=== PATIENT | female | born 1980 | race Caucasian/White ===

== ENCOUNTER 2020-10-09 05:05 | Inpatient (IN) | payer MEDICAID ==
[~2020-10-09] VITALS: Ht 180.3 cm; Wt 187.0 kg
[2020-10-09] MEDS ORDERED: NEWBORN KIT ONE (05:22)
[2020-10-09] MEDS ORDERED: OXYTOCIN 30U/ 0.9% NaCL 500ML 500 ML ONE (05:23)
[2020-10-09] MEDS ORDERED: SODIUM CITRATE/CITRIC ACID 15 ML UDC ONE (05:23)
[2020-10-09] MEDS ORDERED: METOCLOPRAMIDE 5 MG/ML, 2ML ONE (05:23)
[2020-10-09] MEDS ORDERED: LEVO200T5 PO (05:25)
[2020-10-09] MEDS ORDERED: LIOT25TA12 PO (05:26)
[2020-10-09] MEDS ORDERED: PREN1TAB62 PO (05:26)
[2020-10-09 05:27] VITALS: BP 118/74
[2020-10-09] MEDS ORDERED: FLUT12HF2 INH (05:27)
[2020-10-09] MEDS ORDERED: LACTATED RINGERS 1,000 ML IVBOLUS ONE (05:30)
[2020-10-09] MEDS ORDERED: SODIUM CITRATE/CITRIC ACID 30 ML UDC PO ONE (05:30)
[2020-10-09] MEDS ORDERED: LACTATED RINGERS 1,000 ML IV SCH (05:30)
[2020-10-09] MEDS ORDERED: METOCLOPRAMIDE 5 MG/ML, 2ML IV ONE (05:30)
[2020-10-09 05:56] LABS: BASOPHILS % (AUTO) 1 % (0-1); EOSINOPHILS % (AUTO) 6 % (1-7); LYMPHOCYTES % (AUTO) 18 % (22-44); MD NO; MEAN CORPUSCULAR HEMOGLOBIN 30.6 pg (27.0-34.8); MEAN CORPUSCULAR HGB CONC 34.1 g/dL (32.4-35.8); MEAN PLATELET VOLUME 7.3 fL (7.4-10.4); MONOCYTES % (AUTO) 4 % (2-9); NEUTROPHILS % (AUTO) 71 % (42-75); PLATELET COUNT 211 x10^3/uL (130-400); RED BLOOD COUNT 4.22 x10^6/uL (3.82-5.3); RED CELL DISTRIBUTION WIDTH 14.3 % (9.6-15.2)
[2020-10-09] MEDS ORDERED: LABETALOL 5MG/ML, 20ML IV PRN (06:30)
[2020-10-09] MEDS ORDERED: FENTANYL PF 100 MCG/2ML IV PRN (06:30)
[2020-10-09] MEDS ORDERED: hydrALAzine 20 MG/ML, 1ML IV PRN (06:30)
[2020-10-09] MEDS ORDERED: OXYcodone 5 MG/5 ML ORAL.SOL UDC PO PRN (06:30)
[2020-10-09] MEDS ORDERED: EPHEDRINE 50 MG/ML, 1ML IVPush PRN (06:30)
[2020-10-09] MEDS ORDERED: METOPROLOL 1 MG/ML, 5ML IV PRN (06:30)
[2020-10-09] MEDS ORDERED: HYDROmorphone 2 MG/ML, 1ML IVPush PRN (06:30)
[2020-10-09] MEDS ORDERED: PROMETHAZINE 25 MG/ML, 1ML IV PRN (06:30)
[2020-10-09] MEDS ORDERED: ONDANSETRON 2MG/ML, 2ML IVPush PRN (06:30)
[2020-10-09] MEDS ORDERED: HYDROcodone/APAP 7.5-325MG/15ML UDC PO PRN (06:30)
[2020-10-09] MEDS ORDERED: ALBUTEROL SULFATE 2.5 MG/3 ML NPPB PRN (06:30)
[2020-10-09] MEDS ORDERED: MIDAZOLAM 1 MG/ML, 2ML IV PRN (06:30)
[2020-10-09] MEDS ORDERED: MEPERIDINE/PF 25MG/0.5ML IVPush PRN (06:30)
[2020-10-09] MEDS ORDERED: morphine SULFATE/PF 0.5 MG/ML, 10ML ONE (06:45)
[2020-10-09] MEDS ORDERED: EPINEPHRINE 1 MG/ML, 1ML ONE (06:45)
[2020-10-09 07:06] LABS: AMPHETAMINE SCREEN, URINE Negative (Negative); BARBITURATE SCREEN, URINE Negative (Negative); BENZODIAZEPINE SCREEN, URINE Negative (Negative); CANNABINOID SCREEN, URINE Negative (Negative); COCAINE SCREEN, URINE Negative (Negative); METHADONE SCREEN, URINE Negative (Negative); OPIATE SCREEN, URINE Negative (Negative)
[2020-10-09] MEDS ORDERED: CALCIUM CHLORIDE 10%, 10ML SYR ONE (09:07)
[2020-10-09] MEDS ORDERED: PHENYLEPHRINE 10 MG/ML ONE (09:07)
[2020-10-09] MEDS ORDERED: CEFAZOLIN 1,000 MG ONE (09:07)
[2020-10-09] MEDS ORDERED: ONDANSETRON 2MG/ML, 2ML ONE ×2 (09:07)
[2020-10-09] MEDS ORDERED: OXYTOCIN 10 UNITS/ML, 1ML ONE (09:07)
[2020-10-09] MEDS ORDERED: WATER-INJECTION,STERILE 10 ML IV ONE (09:07)
[2020-10-09] MEDS ORDERED: EPHEDRINE 50 MG/ML, 1ML ONE (09:07)
[2020-10-09] MEDS: LACTATED RINGERS 1,000 ML IV SCH ×4 (09:30→19:30)
[2020-10-09] MEDS ORDERED: KETOROLAC 30 MG/1 ML ONE (09:48)
[2020-10-09] MEDS: KETOROLAC 30 MG/1 ML IV SCH ×3 (09:50→21:37)
[2020-10-09] MEDS: OXYTOCIN 30U/ 0.9% NaCL 500ML 500 ML IV SCH ×2 (11:25→19:30)
[2020-10-09 11:45] VITALS: BP 115/56
[2020-10-09] MEDS: LEVOTHYROXINE HOMEMEDPO SCH (14:00)
[2020-10-09] MEDS: LIOTHYRONINE HOMEMEDPO SCH (14:00)
[2020-10-09 15:38] VITALS: BP 129/88
[2020-10-09 17:34] LABS: BASOPHILS % (AUTO) 1 % (0-1); EOSINOPHILS % (AUTO) 2 % (1-7); LYMPHOCYTES % (AUTO) 11 % (22-44); MEAN CORPUSCULAR HEMOGLOBIN 30.2 pg (27.0-34.8); MEAN CORPUSCULAR HGB CONC 33.5 g/dL (32.4-35.8); MEAN PLATELET VOLUME 7.1 fL (7.4-10.4); MONOCYTES % (AUTO) 4 % (2-9); NEUTROPHILS % (AUTO) 81 % (42-75); PLATELET COUNT 186 x10^3/uL (130-400); RED BLOOD COUNT 3.84 x10^6/uL (3.82-5.3); RED CELL DISTRIBUTION WIDTH 14.5 % (9.6-15.2)
[2020-10-09 17:37] LABS: MD NO
[2020-10-09 20:10] VITALS: BP 106/72
[2020-10-09] MEDS: DOCUSATE 100 MG CAPSULE PO PRN (21:37)
[2020-10-09] MEDS: FLUTICASONE PROPIONATE INH SCH (21:42)
[2020-10-10 00:10] VITALS: BP 120/76
[2020-10-10] MEDS: LACTATED RINGERS 1,000 ML IV SCH ×5 (01:30→17:30)
[2020-10-10] MEDS: KETOROLAC 30 MG/1 ML IV SCH ×4 (03:27→21:59)
[2020-10-10 03:30] VITALS: BP 120/81
[2020-10-10] MEDS: OXYTOCIN 30U/ 0.9% NaCL 500ML 500 ML IV SCH ×2 (05:30→15:30)
[2020-10-10] MEDS: PRENATAL VIT/IRON/FA 1 EACH TABLET PO SCH (08:47)
[2020-10-10] MEDS: SIMETHICONE 80 MG CHEW TAB PO PRN ×2 (08:48→17:38)
[2020-10-10] MEDS: DOCUSATE 100 MG CAPSULE PO PRN (08:48)
[2020-10-10] MEDS: LEVOTHYROXINE HOMEMEDPO SCH (09:00)
[2020-10-10] MEDS: FLUTICASONE PROPIONATE INH SCH ×2 (09:00→21:00)
[2020-10-10] MEDS: LIOTHYRONINE HOMEMEDPO SCH (09:00)
[2020-10-10] MEDS: OXYcodone/APAP 5/325MG TABLET PO PRN (17:39)
[2020-10-10 19:29] VITALS: BP 131/84
[2020-10-11 02:15] VITALS: BP 138/65
[2020-10-11] MEDS: IBUPROFEN 600 MG TABLET PO PRN ×3 (03:36→19:01)
[2020-10-11 07:00] VITALS: BP 126/70
[2020-10-11] MEDS: PRENATAL VIT/IRON/FA 1 EACH TABLET PO SCH (07:39)
[2020-10-11] MEDS: DOCUSATE 100 MG CAPSULE PO PRN (07:39)
[2020-10-11] MEDS: OXYcodone/APAP 5/325MG TABLET PO PRN ×2 (07:40→12:48)
[2020-10-11] MEDS: LIOTHYRONINE HOMEMEDPO SCH (09:00)
[2020-10-11] MEDS: LEVOTHYROXINE HOMEMEDPO SCH (09:00)
[2020-10-11] MEDS: FLUTICASONE PROPIONATE INH SCH ×2 (09:00→21:00)
[2020-10-11] MEDS ORDERED: IBUPROFEN 600 MG TABLET PO PRN (09:30)
[2020-10-11 13:19] VITALS: BP 129/78
[2020-10-11 16:25] VITALS: BP 138/88
[2020-10-11 19:43] VITALS: BP 140/81
[2020-10-11 23:30] VITALS: BP 112/74
[2020-10-12] MEDS: DOCUSATE 100 MG CAPSULE PO PRN ×2 (01:14→07:30)
[2020-10-12] MEDS: IBUPROFEN 600 MG TABLET PO PRN ×4 (01:14→19:32)
[2020-10-12] MEDS: OXYcodone/APAP 5/325MG TABLET PO PRN ×2 (01:14→19:32)
[2020-10-12 07:00] VITALS: BP 124/74
[2020-10-12] MEDS: PRENATAL VIT/IRON/FA 1 EACH TABLET PO SCH (07:30)
[2020-10-12] MEDS: LIOTHYRONINE HOMEMEDPO SCH (09:00)
[2020-10-12] MEDS: FLUTICASONE PROPIONATE INH SCH ×2 (09:00→21:00)
[2020-10-12] MEDS: LEVOTHYROXINE HOMEMEDPO SCH (09:00)
[2020-10-12] MEDS ORDERED: FUROSEMIDE 10 MG/ML ORAL SOL PO ONE (19:00)
[2020-10-12 22:25] VITALS: BP 126/79
[2020-10-13 07:35] VITALS: BP 119/80
[2020-10-13] MEDS: IBUPROFEN 600 MG TABLET PO PRN (07:40)
[2020-10-13] MEDS: OXYcodone/APAP 5/325MG TABLET PO PRN ×2 (07:40→12:18)
[2020-10-13] MEDS: PRENATAL VIT/IRON/FA 1 EACH TABLET PO SCH (07:42)
[2020-10-13] MEDS: DOCUSATE 100 MG CAPSULE PO PRN (07:42)
[2020-10-13] MEDS: FLUTICASONE PROPIONATE INH SCH (09:00)
[2020-10-13] MEDS: LIOTHYRONINE HOMEMEDPO SCH (09:00)
[2020-10-13] MEDS: LEVOTHYROXINE HOMEMEDPO SCH (09:00)
[2020-10-13] MEDS ORDERED: IBUP-1222 PO ×2 (10:34→11:59)
[2020-10-13] MEDS ORDERED: OXYC1TAB14 PO (11:59)
[2020-10-13] MEDS ORDERED: DOCU-131 PO (11:59)
== END 2020-10-13 12:54 | disposition home or self-care (01) | DRG 783 ==
LOC: LDIP 05:05 → 2NW 11:30
PROVIDERS: ADMIT Obstetrics & Gynecology; ATTEND Obstetrics & Gynecology
PROC: 0UB70ZZ Excision of Bilateral Fallopian Tubes, Open Approach (ICD-10-PCS; principal; 2020-10-09)
PROC: 10D00Z1 Extraction of Products of Conception, Low, Open Approach (ICD-10-PCS; 2020-10-09)
DX: O36.5930 Maternal care for other known or suspected poor fetal growth, third trimester, not applicable or unspecified (principal); U07.1 COVID-19; O98.52 Other viral diseases complicating childbirth; E03.9 Hypothyroidism, unspecified; E66.01 Morbid (severe) obesity due to excess calories; O40.3XX0 Polyhydramnios, third trimester, not applicable or unspecified; O43.123 Velamentous insertion of umbilical cord, third trimester; O99.214 Obesity complicating childbirth; O99.284 Endocrine, nutritional and metabolic diseases complicating childbirth; Z30.2 Encounter for sterilization; Z37.0 Single live birth; Z3A.38 38 weeks gestation of pregnancy
CPT/HCPCS: 36415; 80307; 85025; 86592; 86850; 86900; 88302; 88307; 93005; G0378; J0171; J0690; J1885; J2274; J2405; J2370; J2590; J2765; J7120